=== PATIENT | male | born 1990 | race Caucasian/White ===

== ENCOUNTER 2021-09-24 19:34 | Emergency (ER) | payer SELFPAY ==
[2021-09-24 19:36] VITALS: BP 116/76; PULSE 97; RESP 17; TEMP 36.5; O2SAT 99; BMI 30.5
--- NOTE | 2021-09-24 19:40 | EDS_ITS ---
HPI History of Present Illness Chief Complaint: Headache Narrative Narrative: 30-year-old male with history of migraine headaches presenting with migraine. Patient states been ongoing for 2 days. Never really last this long. He complains of light sensitivity and sound activity. He states that his symptoms are typical of his migraine with exception of the duration. No head trauma. No fever, chills. No neck pain. PFSH PFSH Medical History Kidney stones Migraines Smoker Home Medications NK 09/24/21 [History Last Taken Unknown] Allergy/AdvReac Type Severity Reaction Status Date / Time morphine AdvReac Other Verified 09/24/21 20:30 Social History Smoking Status: Current every day smoker tobacco type: cigarettes ROS ROS ED Constitutional Constitutional ED: Denies chills or fever(s) Eyes Eyes: Reports other Details: Light sensitivity ; Denies blurry vision or diplopia ENT ENT ED: Denies rhinorrhea or sore throat Cardiovascular Cardiovascular: Denies chest pain or palpitations Respiratory/Chest Respiratory/Chest: Denies cough or dyspnea Gastrointestinal Gastrointestinal: Reports nausea; Denies abdominal pain, diarrhea or vomiting Genitourinary Genitourinary ED: Denies dysuria or hematuria Musculoskeletal Musculoskeletal: Denies arthralgias or myalgias Integumentary Denies abscess or rash Neurologic Neurologic: Reports headache(s); Denies paresthesias or weakness Psychiatric Psychiatric: Denies anxiety or depression EXAM Physical Exam Const Vital Signs: 09/24/21 19:36 Temperature 97.7 F L Temperature Source Temporal Pulse Rate 97 Respiratory Rate 17 Blood Pressure 116/76 Blood Pressure Mean 89 Pulse Ox 99 Oxygen Delivery Method Room Air Positive well nourished General Appearance ED: NAD HEENT Reports normocephalic and moist mucous membranes atraumatic Eyes PERRL and EOMs intact bilaterally Neck no lymphadenopathy and supple Resp normal respiratory effort and clear to auscultation bilaterally Cardio regular rhythm GI non-tender and non-distended Palpation: soft Neuro oriented x3, CN's II-XII intact bilaterally and no sensory deficits noted Sensorium / Orientation: awake and alert Motor Exam: strength 5/5 throughout Psych mental status grossly normal Skin Lesions: no lesions Rashes: no rashes MDM MDM MDM Narrative Medical decision making narrative: Patient given Reglan, Benadryl, Toradol. He has no focal neurologic deficits or lateralizing signs or symptoms. He is well- appearing sitting in a lysing the light hurts his eyes a little bit. He states that his symptoms are typical of his migraines. I do not believe he needs imaging. He will be reevaluated. On reevaluation at 2133 the patient's headache is resolved. He feels well. He feels at this time he can be discharged home. Patient given instructions for follow-up and for return evaluation. Impression: 1. Migraine Discharge Plan Triage Chief Complaint: Headache ED Provider: Jim Fitzgerald Dx/Rx/DC Orders Instructions: ED, Migraine (Classical) Prescriptions: No Action NK RF: 0 Primary Care Provider: Care Physician,No Primary Referrals: Care Physician,No Primary [Primary Care Provider] - Disposition Disposition: Home, Self Care
[2021-09-24] MEDS: Ketorolac 15 MG/ML Vial IV (20:27)
[2021-09-24] MEDS: Metoclopramide 10 MG/2 ML Vial IV (20:27)
[2021-09-24] MEDS: DiphenhydrAMINE 50 MG/ML Syringe 25 MG IV (20:28)
[2021-09-24 22:03] VITALS: BP 111/65; PULSE 76; RESP 16; O2SAT 97
[2021-09-24 22:05] VITALS: BP 111/65; PULSE 76; RESP 16; O2SAT 97
== END 2021-09-24 22:07 | disposition home or self-care (01) ==
PROVIDERS: Emergency Provider Student in an Organized Health Care Education/Training Program; Visit Provider Student in an Organized Health Care Education/Training Program
DX: G43.909 Migraine, unspecified, not intractable, without status migrainosus (principal); F17.210 Nicotine dependence, cigarettes, uncomplicated
CPT/HCPCS: 96374; 96375; 99283; J7030

== ENCOUNTER 2023-02-03 09:25 | Emergency (ER) | payer SELFPAY ==
[2023-02-03 09:28] VITALS: BP 140/78; PULSE 98; RESP 16; TEMP 36.6; O2SAT 98; BMI 29.6
--- NOTE | 2023-02-03 10:18 | CT_ITS ---
STUDY: CT CHEST WITHOUT CONTRAST REASON FOR EXAM: Male, 32 years old. Trauma RADIATION DOSAGE (If Supplied By Facility): CTDIvol = ( 16.69 ) mGy, DLP = ( 671.69 ) mGycm TECHNIQUE: Transaxial imaging was performed without the administration of intravenous contrast material. Multiplanar coronal and sagittal images were reformatted. Individualized dose optimization techniques were used for this CT. COMPARISON: No relevant priors. FINDINGS: CHEST There are mild fibrotic density at the periphery of the lung apices. There is no demonstrated pleural abnormality. Normal heart and pericardium. There are no calcifications of the coronary arteries. Normal mediastinum. Normal hilar regions. Normal unenhanced pulmonary arteries. Normal aorta arch and descending thoracic aorta. Normal osseous structures. There is no demonstrated abnormality of the visualized upper abdomen. CT/Thorax/Ribs/Sternum without IMPRESSION: No fracture or pneumothorax. Mild fibrotic densities of the lungs. Electronically Signed: Yves Chambers MD at 12:02 EDT ,
--- NOTE | 2023-02-03 10:20 | EDS_ITS ---
HPI History of Present Illness Chief Complaint: Back Narrative Narrative: 32-year-old male who denies significant past medical history presents with his family because of injury to his right posterior ribs that he sustained yesterday evening, around 7 or 8 PM. This was approximately 14 hours ago. He states that he was jumping up and grabbing a tree branch to try and pull it down for a fire. He jumped up about 10 feet he states, and fell backwards onto his back, mainly on the right side. He denies hitting his head head or loss of consciousness or other injury. He states that he can get the wind knocked out of him and was able to still function yesterday, but now that he woke up he is having pain that is worse with movement in his right posterior back mainly on his rib cage. He denies any other injury. No other symptoms. PFSH PFS Medical History Kidney stones Migraines Smoker Home Medications NK 09/24/21 [History Last Taken Unknown] Allergy/AdvReac Type Severity Reaction Status Date / Time morphine AdvReac Other Verified 02/03/23 09:27 Social History Smoking Status: Current every day smoker tobacco type: cigarettes ROS ROS ED ROS Narrative Constitutional: No fever, no chills. HEENT: No sore throat. No neck pain. No loss of vision. No rhinorrhea. Cardiovascular: No chest pain. No palpitations. No pedal edema. Respiratory: No cough, no shortness of breath. Abdominal: No abdominal pain. No nausea. No vomiting. Genitourinary: No dysuria. No hematuria. Musculoskeletal: No myalgias. No arthralgias. Right posterior back/rib pain, worse with movement. Neurologic: No headaches. No dizziness. No lightheadedness. Skin: No rash. No change in color. Psychiatric: No depression. No anxiety. EXAM Physical Exam Narrative Exam Narrative: Afebrile. Vital signs noted. 15. ABCs intact. HEENT: Normocephalic. Atraumatic. PERRL, EOMI. Neck soft and supple. No point tenderness or step off. Cardiovascular: Regular rate and rhythm. No murmurs, rubs, or gallops appreciated. Respiratory: No tachypnea. Lungs clear to auscultation bilaterally. Gastrointestinal: Abdomen soft, nontender, with normoactive bowel sounds. No rebound or guarding. Neurological: Awake. Alert. Nonfocal, nonlateralizing. Skin: No rash. Normal color. No pallor. Musculoskeletal: No pedal edema. Full range of motion extremities. Denies to palpation right posterior ribs, mainly #8 through 12. No noted ecchymosis or crepitance. Const Vital Signs: 02/03/23 09:28 Temperature 98 F Temperature Source Temporal Pulse Rate 98 Respiratory Rate 16 Blood Pressure 140/78 H Blood Pressure Mean 98 Pulse Ox 98 Oxygen Delivery Method Room Air MDM MDM MDM Narrative Medical decision making narrative: Concern is for rib fracture versus chest wall contusion/rib contusion. I have lower suspicion for pneumothorax as his pulse ox is 98% on room air and he has equal breath sounds. He was given 1 [place] tablet for analgesia and an ice pack. I do feel he would benefit more from CT of the thorax instead of simple rib x- rays given the height of his fall. He has no midline tenderness or step-off throughout his cervical, thoracic, and lumbar spine so I do not feel that separate imaging is indicated. The CT imaging and see no evidence of acute fracture, I reviewed the radiology report which confirms my independent interpretation of his chest CT. It was read as no fracture or pneumothorax. At this point in time, as he has no rib fracture I do not feel that he requires observation or narcotic pain medication. He will continue application of ice, and take [id number] medications for analgesia. Follow-up with primary care provider. Return instructions to the emergency department were reviewed. Disposition is discharged home in stable condition. History & Record Review Discussion w/independent historian: Patient Additional record(s) reviewed:: Prior ED visit Radiography Diagnostic Testing: Clinical Impression(s) from Imaging Studies Chest CT 02/03/23 10:18 IMPRESSION: No fracture or pneumothorax. Mild fibrotic densities of the lungs. Electronically Signed: Yves Chambers MD at 12:02 EDT , Discharge Plan Triage Chief Complaint: Back ED Provider: Estuardo Espana Dx/Rx/DC Orders Clinical Impression: Contusion of back wall of thorax, Fall from tree Instructions: ED Chest Wall Contusion, ED Mechanical Fall Prescriptions: No Action NK Primary Care Provider: Care Physician,No Primary Referrals: Jose Lowry MD [Med Staff - Active Staff] - 1 Week if not improving Care Physician,No Primary [Primary Care Provider] - Disposition Disposition: Home, Self Care
[2023-02-03] MEDS: HYDROcodone Bitartrate/Apap 5/325 Tablet PO (10:25)
[2023-02-03 11:25] VITALS: PULSE 96; RESP 18; O2SAT 99
== END 2023-02-03 12:36 | disposition home or self-care (01) ==
PROVIDERS: Emergency Provider Emergency Medicine; Visit Provider Emergency Medicine
DX: S20.229A Contusion of unspecified back wall of thorax, initial encounter (principal); F17.210 Nicotine dependence, cigarettes, uncomplicated; W19.XXXA Unspecified fall, initial encounter
CPT/HCPCS: 71250; 99283